=== PATIENT | female | born 1995 | race Caucasian/White ===

== ENCOUNTER 2016-09-05 22:38 | Emergency (ER) | payer OTHER ==
[~2016-09-05] VITALS: Ht 152.4 cm; Wt 81.6 kg
[~2016-09-05 22:38] MED LIST: IBUP-1060 PO
[2016-09-05 22:40] VITALS: BP 115/72
[2016-09-05] MEDS ORDERED: HYDR-2666 PO (23:38)
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
[2016-09-06] MEDS ORDERED: BACI3.5O8 OS
== END 2016-09-06 00:05 | disposition home or self-care (01) ==
LOC: ER 22:38
DX: T20.66XA Corrosion of second degree of forehead and cheek, initial encounter (principal); T65.891A Toxic effect of other specified substances, accidental (unintentional), initial encounter; Y93.H9 Activity, other involving exterior property and land maintenance, building and construction; Y99.8 Other external cause status; Y92.89 Other specified places as the place of occurrence of the external cause
CPT/HCPCS: 16000; 99284-25

== ENCOUNTER 2017-04-04 11:28 | Emergency (ER) | payer OTHER ==
[~2017-04-04] VITALS: Ht 152.4 cm; Wt 73.5 kg
[~2017-04-04 11:28] MED LIST changes: +BACI3.5O8 OS; +HYDR-2758 PO
[2017-04-04] MEDS ORDERED: IV NORMAL SALINE 1000ML BAG 1,000 ML IV SCH (11:54)
--- NOTE | 2017-04-04 11:58 | PHYS DOC ---
Past Medical History Past Medical History: No Pertinent History Past Surgical History: No Surgical History Alcohol Use: None Drug Use: Marijuana Adult General Chief Complaint Chief Complaint: ABDOMINAL PAIN HPI HPI Patient is a 22 year old female who presents with right lower quadrant pain. She states it started 3 days ago. It is a crampy/sharp pain that shoots across her suprapubic area but is mainly in her right lower quadrant. She denies any ears chills nausea vomiting or diarrhea. She denies any vaginal bleeding or discharge or dysuria. She states she's had bad menstrual cramps in the past and this feels somewhat like that but not nearly as bad. She has not taken anything for the pain as of yet. She denies any past medical history and denies any history of surgery. Review of Systems Review of Systems Constitutional: Denies fever or chills [] Eyes: Denies change in visual acuity, redness, or eye pain [] HENT: Denies nasal congestion or sore throat [] Respiratory: Denies cough or shortness of breath [] Cardiovascular: No additional information not addressed in HPI [] GI: Positive for abdominal pain. Denies nausea, vomiting, bloody stools or diarrhea [] : Denies dysuria or hematuria [] Musculoskeletal: Denies back pain or joint pain [] Integument: Denies rash or skin lesions [] Neurologic: Denies headache, focal weakness or sensory changes [] Endocrine: Denies polyuria or polydipsia [] Current Medications Current Medications Current Medications Medications (Trade) Dose Ordered Sig/[facility] Start Time Stop Time Status Last Admin Dose Admin Ceftriaxone Sodium 50 ml @ 100 mls/hr 1X ONCE 04/04/17 14:45 04/04/17 15:14 Info (Do NOT chart on this entry -- for MONITORING) 1 each PRN DAILY PRN 04/04/17 12:15 04/06/17 12:14 Iohexol (Omnipaque 300 Mg/ml) 75 ml 1X ONCE 04/04/17 12:15 04/04/17 12:16 DC 04/04/17 12:15 75 ML Morphine Sulfate 2 mg PRN Q15MIN PRN 04/04/17 12:00 04/05/17 11:59 Ondansetron HCl (Zofran) 4 mg 1X ONCE 04/04/17 12:00 04/04/17 12:01 DC Sodium Chloride 1,000 ml @ 1,000 mls/hr Q1H 04/04/17 11:54 04/04/17 12:53 DC 04/04/17 12:13 1,000 MLS/HR Allergies Allergies Allergies Coded Allergies Type Severity Reaction Last Updated Verified No Known Drug Allergies 02/22/14 No Physical Exam Physical Exam Constitutional: Well developed, well nourished, no acute distress, non-toxic appearance. [] HENT: Normocephalic, atraumatic, bilateral external ears normal, oropharynx moist, no oral exudates, nose normal. [] Eyes: PERRLA, EOMI, conjunctiva normal, no discharge. [] Neck: Normal range of motion, no tenderness, supple, no stridor. [] Cardiovascular:Heart rate regular rhythm, no murmur [] Lungs & Thorax: Bilateral breath sounds clear to auscultation [] Abdomen: Bowel sounds hyperactive, soft, mild tender to palpation without any rebound or guarding in the right lower quadrant, Psoas sign negative, no masses , no pulsatile masses. [] Skin: Warm, dry, no erythema, no rash. [] Back: No tenderness, no CVA tenderness. [] Extremities: No tenderness, no cyanosis, no clubbing, ROM intact, no edema. [] Neurologic: Alert and oriented X 3, normal motor function, normal sensory function, no focal deficits noted. [] Psychologic: Affect normal, judgement normal, mood normal. [] Current Patient Data Vital Signs Vital Signs Date Time Temp Pulse Resp B/P (MAP) Pulse Ox O2 Delivery O2 Flow Rate FiO2 04/04/17 14:30 74 20 105/56 (72) 99 04/04/17 11:39 98.3 Room Air 98.3 Lab Values Laboratory Tests Test 04/04/17 10:46 04/04/17 11:35 04/04/17 12:00 04/04/17 12:30 POC Urine HCG, Qualitative Hcg negative (Negative) Urine Collection Type Unknown Urine Color Yellow Urine Clarity Cloudy Urine pH 6.0 Urine Specific [place] 1.020 Urine Protein Negative mg/dL (NEG-TRACE) Urine Glucose (UA) Negative mg/dL (NEG) Urine Ketones (Stick) Negative mg/dL (NEG) Urine Blood Negative (NEG) Urine Nitrite Positive (NEG) Urine Bilirubin Negative (NEG) Urine Urobilinogen Dipstick 0.2 mg/dL (0.2 mg/dL) Urine Leukocyte Esterase Large (NEG) Urine RBC 0 /HPF (0-2) Urine WBC >40 /HPF (0-4) Urine Squamous Epithelial Cells Mod /LPF Urine Bacteria Many /HPF (0-FEW) White Blood Count 7.5 x10^3/uL (4.0-11.0) Red Blood Count 4.45 x10^6/uL (3.50-5.40) Hemoglobin 13.9 g/dL (12.0-15.5) Hematocrit 41.5 % (36.0-47.0) Mean Corpuscular Volume 93 fL (79-100) Mean Corpuscular Hemoglobin 31 pg (25-35) Mean Corpuscular Hemoglobin Concent 34 g/dL (31-37) Red Cell Distribution Width 13.1 % (11.5-14.5) Platelet Count 204 x10^3/uL (140-400) Neutrophils (%) (Auto) 74 % (31-73) H Lymphocytes (%) (Auto) 20 % (24-48) L Monocytes (%) (Auto) 5 % (0-9) Eosinophils (%) (Auto) 1 % (0-3) Basophils (%) (Auto) 0 % (0-3) Neutrophils # (Auto) 5.5 x10^3uL (1.8-7.7) Lymphocytes # (Auto) 1.5 x10^3/uL (1.0-4.8) Monocytes # (Auto) 0.4 x10^3/uL (0.0-1.1) Eosinophils # (Auto) 0.1 x10^3/uL (0.0-0.7) Basophils # (Auto) 0.0 x10^3/uL (0.0-0.2) Prothrombin Time 13.0 SEC (11.7-14.0) Prothrombin Time INR 1.0 (0.8-1.1) PTT 32 SEC (24-38) Sodium Level 143 mmol/L (136-145) Potassium Level 3.6 mmol/L (3.5-5.1) Chloride Level 107 mmol/L (98-107) Carbon Dioxide Level 27 mmol/L (21-32) Anion Gap 9 (6-14) Blood Urea Nitrogen 8 mg/dL (7-20) Creatinine 0.7 mg/dL (0.6-1.0) Estimated GFR (Cockcroft-Gault) 103.7 Glucose Level 78 mg/dL (70-99) Calcium Level 8.7 mg/dL (8.5-10.1) Total Bilirubin 0.5 mg/dL (0.2-1.0) Direct Bilirubin 0.1 mg/dL (0.0-0.2) Aspartate Amino Transferase (AST) 26 U/L (15-37) Alanine Aminotransferase (ALT) 38 U/L (14-59) Alkaline Phosphatase 90 U/L (46-116) Creatine Kinase 42 U/L (26-192) Total Protein 8.4 g/dL (6.4-8.2) H Albumin 3.9 g/dL (3.4-5.0) Lipase 141 U/L (73-393) Laboratory Tests 04/04/17 12:00 Laboratory Tests 04/04/17 12:30 EKG EKG [] Radiology/Procedures Radiology/Procedures [facility] [address] [place] [address] IMAGING REPORT Signed PATIENT: MARK MONTANO ACCOUNT: [id number] : 1995 LOCATION: ER AGE: 22 SEX: F EXAM STATUS: REG ER ORD. PHYSICIAN: LOUIS PATEL MD REASON: rlq pain/waiting patient in ct PROCEDURE: PELVIS COMPLETE Pelvic ultrasound, 04/04/2017: History: Right lower quadrant pain Transabdominal scans were obtained. The patient refused to allow transvaginal scanning could be performed. The uterus measures 9.7 x 4.3 x 5.6 cm. The central uterine echo complex is not thickened, measuring 6 mm in AP dimension. The ovaries are of normal size. There is a 1.5 cm cyst in the right ovary. There is blood flow in both ovaries. No adnexal mass is evident. A small amount of free fluid seen in the pelvis on the CT study was not demonstrated on these transabdominal scans. IMPRESSION: 1. Small right ovarian cyst. 2. The pelvic ultrasound is otherwise unremarkable. DICTATED and SIGNED BY: SAL BELTRAN MD DATE: 04/04/17 1442 CC: LOUIS PATEL MD; NO PCP ~ [facility] [address] [place] [address] IMAGING REPORT Signed PATIENT: MARK MONTANO ACCOUNT: [id number] : 1995 LOCATION: ER AGE: 22 SEX: F EXAM STATUS: REG ER ORD. PHYSICIAN: LOUIS PATEL MD REASON: rlq pain PROCEDURE: CT ABD PELV W/ IV CONTRST ONLY CT of the abdomen and pelvis with contrast, 04/04/2017: History: Right lower quadrant pain Multidetector CT imaging was performed following an IV bolus injection of iodinated contrast material. No oral contrast material was administered for this exam. The liver is unremarkable. No gallbladder abnormality is seen. The pancreas shows no abnormality. The spleen is of normal size. The kidneys are unremarkable. The uterus is within normal limits in size. There is a small amount of free fluid in the deep pelvis. There appears to be a 1.5 cm cyst in the right ovary. The left ovary is unremarkable. The bowel loops are not dilated. A portion of the appendix is visualized. It is not dilated, measuring approximately 6 mm in width. Its tip is not visible. The bowel loops are not dilated. No free air is evident in the abdomen or pelvis. IMPRESSION: 1. Small amount of free fluid in the pelvis. This May be on a physiologic basis or could be due to recent rupture of an ovarian cyst or PID. 2. Small right ovarian cyst. PQRS Compliance Statement: One or more of the following individualized dose reduction techniques were utilized for this examination: 1. Automated exposure control 2. Adjustment of the mA and/or kV according to patient size 3. Use of iterative reconstruction technique DICTATED and SIGNED BY: SAL BELTRAN MD DATE: 04/04/17 2852 CC: LOUIS PATEL MD; NO PCP ~ Impressions: Urinary tract infection Course & Med Decision Making Course & Med Decision Making Pertinent Labs and Imaging studies reviewed. (See chart for details) CT scan Jennifer ultrasound of pelvis did not show any acute abnormality's. Patient' s being discharged home after she received Rocephin and will be discharged with Cipro 5 mg twice daily for 3 days. Return precautions given. Patient's agreeable Plan B discharged in stable condition this time. Dragon Disclaimer Dragon Disclaimer This electronic medical record was generated, in whole or in part, using a voice recognition dictation system. Departure Departure Impression: Primary Impression: UTI (urinary tract infection) Disposition: HOME, SELF-CARE Condition: STABLE Referrals: NO PCP (PCP) Patient Instructions: Urinary Tract Infection Additional Instructions: You have a bladder infection and you'll need take biotics for the next 3 days. The CAT scan ultrasound of your abdomen did not show any acute abnormalities. If your pain gets worse, fevers, uncontrolled nausea vomiting or other concerns please return back to emergency department. You should follow-up with your primary care physician within the next 5 days. Scripts Ciprofloxacin Hcl (CIPRO) 500 Mg Tablet 500 MG PO BID for 3 Days, #6 TAB 0 Refills Prov: LOUIS PATEL MD 04/04/17 Problem Qualifiers Primary Impression: UTI (urinary tract infection) Urinary tract infection type: acute cystitis Hematuria presence: without hematuria Qualified Codes: N30.00 - Acute cystitis without hematuria LOUIS PATEL MD Apr 04, 2017 11:58
[2017-04-04] MEDS ORDERED: MORPHINE SULFATE 2 MG/ML DISP.SYRIN. IV/SQ PRN (12:00)
[2017-04-04] MEDS ORDERED: ONDANSETRON PF 4 MG/2 ML VIAL. IV ONE (12:00)
[2017-04-04 12:05] LABS: BASO % 0 % (0-3); EOS % 1 % (0-3); HEMATOCRIT 41.5 % (36.0-47.0); HEMOGLOBIN 13.9 g/dL (12.0-15.5); LYMPH # 1.5 x10^3/uL (1.0-4.8); LYMPH % 20 % (24-48); MEAN CORPUSCULAR HEMOGLOBIN 31 pg (25-35); MEAN CORPUSCULAR HGB CONC 34 g/dL (31-37); MEAN CORPUSCULAR VOLUME 93 fL (79-100); MONO % 5 % (0-9); NEUT % 74 % (31-73); PLATELET COUNT 204 x10^3/uL (140-400); RED BLOOD COUNT 4.45 x10^6/uL (3.50-5.40); RED CELL DISTRIBUTION WIDTH 13.1 % (11.5-14.5); WHITE BLOOD COUNT 7.5 x10^3/uL (4.0-11.0)
[2017-04-04] MEDS ORDERED: IOHEXOL 300 MG/ML 75 ML VIAL IV ONE (12:15)
[2017-04-04] MEDS ORDERED: CONTRAST GIVEN MC PRN (12:15)
[2017-04-04 12:24] LABS: BILIRUBIN,URINE NEGATIVE (NEG); GLUCOSE,URINE NEGATIVE (NEG); NITRITE,URINE POSITIVE (NEG); PROTEIN,URINE NEGATIVE (NEG-TRACE); UROBILINOGEN,URINE 0.2 mg/dL (0.2 mg/dL)
[2017-04-04 12:45] LABS: BACTERIA,URINE MANY /HPF (0-FEW); RBC,URINE 0 /HPF (0-2); SQUAMOUS EPITHELIAL CELL,UR MOD /LPF; WBC,URINE >40 /HPF (0-4)
[2017-04-04 12:54] LABS: CALCIUM 8.7 mg/dL (8.5-10.1); CREATININE 0.7 mg/dL (0.6-1.0); GFR 103.7; POTASSIUM 3.6 mmol/L (3.5-5.1)
[2017-04-04 13:01] LABS: ALBUMIN 3.9 g/dL (3.4-5.0); DIRECT BILIRUBIN 0.1 mg/dL (0.0-0.2); TOTAL BILIRUBIN 0.5 mg/dL (0.2-1.0); TOTAL PROTEIN 8.4 g/dL (6.4-8.2)
[2017-04-04 14:30] VITALS: BP 105/56
--- NOTE | 2017-04-04 14:44 | RAD ---
CT of the abdomen and pelvis with contrast, 04/04/2017: History: Right lower quadrant pain Multidetector CT imaging was performed following an IV bolus injection of iodinated contrast material. No oral contrast material was administered for this exam. The liver is unremarkable. No gallbladder abnormality is seen. The pancreas shows no abnormality. The spleen is of normal size. The kidneys are unremarkable. The uterus is within normal limits in size. There is a small amount of free fluid in the deep pelvis. There appears to be a 1.5 cm cyst in the right ovary. The left ovary is unremarkable. The bowel loops are not dilated. A portion of the appendix is visualized. It is not dilated, measuring approximately 6 mm in width. Its tip is not visible. The bowel loops are not dilated. No free air is evident in the abdomen or pelvis. IMPRESSION: 1. Small amount of free fluid in the pelvis. This May be on a physiologic basis or could be due to recent rupture of an ovarian cyst or PID. 2. Small right ovarian cyst. PQRS Compliance Statement: One or more of the following individualized dose reduction techniques were utilized for this examination: 1. Automated exposure control 2. Adjustment of the mA and/or kV according to patient size 3. Use of iterative reconstruction technique
--- NOTE | 2017-04-04 14:46 | RAD ---
Pelvic ultrasound, 04/04/2017: History: Right lower quadrant pain Transabdominal scans were obtained. The patient refused to allow transvaginal scanning could be performed. The uterus measures 9.7 x 4.3 x 5.6 cm. The central uterine echo complex is not thickened, measuring 6 mm in AP dimension. The ovaries are of normal size. There is a 1.5 cm cyst in the right ovary. There is blood flow in both ovaries. No adnexal mass is evident. A small amount of free fluid seen in the pelvis on the CT study was not demonstrated on these transabdominal scans. IMPRESSION: 1. Small right ovarian cyst. 2. The pelvic ultrasound is otherwise unremarkable.
[2017-04-04] MEDS ORDERED: CIPR500T94 PO (14:58)
== END 2017-04-04 16:22 | disposition home or self-care (01) ==
LOC: ER 11:28
DX: N30.00 Acute cystitis without hematuria (principal); F12.10 Cannabis abuse, uncomplicated
CPT/HCPCS: 36415; 74177; 76856; 80048; 80076; 81001; 81025; 82550; 83690; 85027; 85610; 85730; 87086; 96361; 96365; 99285; J0690; J7030; Q9967; 87186

== ENCOUNTER → 2017-12-09 | Outpatient (CLI) | payer OTHER ==
[2017-12-09 11:43] LABS: ADD MAN DIFF? NO
[2017-12-09 11:48] LABS: BASO % 0 % (0-3); EOS # 0.2 x10^3/uL (0.0-0.7); EOS % 2 % (0-3); HEMATOCRIT 40.1 % (36.0-47.0); HEMOGLOBIN 13.9 g/dL (12.0-15.5); LYMPH # 2.3 x10^3/uL (1.0-4.8); LYMPH % 26 % (24-48); MEAN CORPUSCULAR HEMOGLOBIN 32 pg (25-35); MEAN CORPUSCULAR HGB CONC 35 g/dL (31-37); MEAN CORPUSCULAR VOLUME 93 fL (79-100); MONO # 0.5 x10^3/uL (0.0-1.1); MONO % 6 % (0-9); NEUT # 5.9 x10^3uL (1.8-7.7); NEUT % 67 % (31-73); PLATELET COUNT 185 x10^3/uL (140-400); RED BLOOD COUNT 4.31 x10^6/uL (3.50-5.40); RED CELL DISTRIBUTION WIDTH 13.3 % (11.5-14.5); WHITE BLOOD COUNT 8.9 x10^3/uL (4.0-11.0)
[2017-12-09 17:15] LABS: HIV ANTIBODY Non Reactive (Non Reactive)
[2017-12-09 22:15] LABS: HEP B SURFACE AG Negative (Negative)
[2017-12-11 20:09] LABS: RUBELLA IGG ANTIBODY 5.84 index (Immune >0.99)
[2017-12-11 23:07] LABS: RPR Non Reactive (Non Reactive)
== END | disposition home or self-care (01) ==
LOC: LAB 11:32
DX: N91.2 Amenorrhea, unspecified (principal)
CPT/HCPCS: 36415; 85025; 86593; 86703; 86762; 86850; 86900; 86901; 87340

== ENCOUNTER → 2018-02-13 | Outpatient (CLI) | payer OTHER | END | disposition home or self-care (01) | LOC: KCIC US 09:42 | DX: O26.842 Uterine size-date discrepancy, second trimester (principal); Z3A.19 19 weeks gestation of pregnancy | CPT/HCPCS: 76805 ==

== ENCOUNTER 2018-05-28 02:40 | Observation (INO) | payer OTHER ==
[~2018-05-28 02:40] MED LIST changes: +CIPR500T94 PO
[2018-05-28] MEDS ORDERED: IV RINGERS,LACTATED 1000ML 1,000 ML IV SCH (03:00)
[2018-05-28 03:46] LABS: BILIRUBIN,URINE NEGATIVE (NEG); CLARITY,URINE CLEAR; COLOR,URINE YELLOW; NITRITE,URINE NEGATIVE (NEG); PH,URINE 5.5; PROTEIN,URINE NEGATIVE (NEG-TRACE); UROBILINOGEN,URINE 0.2 mg/dL (0.2 mg/dL)
[2018-05-28 03:52] LABS: BACTERIA,URINE MANY /HPF (0-FEW); RBC,URINE 0 /HPF (0-2); SQUAMOUS EPITHELIAL CELL,UR FEW /LPF; WBC,URINE 20-40 /HPF (0-4)
[2018-05-28] MEDS ORDERED: ACETAMINOPHEN 500 MG TABLET PO ONE (04:15)
[2018-05-28] MEDS: guaiFENesin ORAL 200 MG/10 ML LIQUID. PO PRN ×2 (04:27→08:42)
[2018-05-28 10:50] LABS: INFLUENZA A PATIENT NEGATIVE (NEGATIVE); INFLUENZA B PATIENT NEGATIVE (NEGATIVE)
== END 2018-05-28 10:40 | disposition home or self-care (01) ==
LOC: 3 SO LND 02:40
PROVIDERS: ADMIT Obstetrics & Gynecology; ATTEND Obstetrics & Gynecology
DX: O62.9 Abnormality of forces of labor, unspecified (principal); Z3A.35 35 weeks gestation of pregnancy; Z23 Encounter for immunization
CPT/HCPCS: 81001; 87086; 87804; G0378; G0379; J7120

== ENCOUNTER 2018-06-23 23:14 | Inpatient (IN) | payer OTHER ==
[~2018-06-23] VITALS: Ht 152.4 cm; Wt 90.7 kg
[2018-06-23] MEDS ORDERED: IV RINGERS,LACTATED 1000ML 1,000 ML IV PRN (23:30)
[2018-06-23 23:47] LABS: BILIRUBIN,URINE NEGATIVE (NEG); CLARITY,URINE CLOUDY; COLOR,URINE AMBER; NITRITE,URINE NEGATIVE (NEG); PROTEIN,URINE NEGATIVE (NEG-TRACE)
[2018-06-23 23:52] LABS: BACTERIA,URINE MODERATE /HPF (0-FEW); RBC,URINE 0 /HPF (0-2); SQUAMOUS EPITHELIAL CELL,UR MANY /LPF; WBC,URINE TNTC /HPF (0-4)
[2018-06-23 23:54] LABS: AMPHETAMINE/METHAMPHETAMINE NEG (NEG); BARBITURATES NEG (NEG); BENZODIAZEPINES NEG (NEG); CANNABINOIDS NEG (NEG); COCAINE NEG (NEG); METHADONE NEG (NEG); OPIATES NEG (NEG); PHENCYCLIDINE NEG (NEG)
[2018-06-24 03:44] VITALS: BP 118/70
[2018-06-24] MEDS ORDERED: TERBUTALINE 1 MG/ML VIAL. SQ PRN (03:45)
[2018-06-24] MEDS ORDERED: OXYTOCIN 30 UNIT/500 ML PREMIX 500 ML IV PRN ×2 (03:45→14:30)
[2018-06-24] MEDS ORDERED: ONDANSETRON PF 4 MG/2 ML VIAL. IV PRN ×2 (03:45→06:00)
[2018-06-24] MEDS ORDERED: IBUPROFEN 400 MG TABLET. PO PRN (03:45)
[2018-06-24] MEDS ORDERED: 0.9 % SODIUM CHLORIDE 10 ML DISP.SYRIN. IV PRN ×2 (03:45→14:30)
[2018-06-24] MEDS ORDERED: LIDOCAINE 1% PF 30 ML VIAL. INJ PRN (03:45)
[2018-06-24] MEDS ORDERED: fentaNYL PF VIAL 100 MCG/2 ML VIAL IV PRN (03:45)
[2018-06-24] MEDS ORDERED: NALBUPHINE 10 MG/ML AMPUL. IV PRN ×2 (03:45→06:00)
[2018-06-24] MEDS ORDERED: PENICILLIN G K 5,000,000 UNIT in IV DEXTROSE 5% 100ML 100 ML IV ONE (04:00)
[2018-06-24] MEDS ORDERED: MAG HYDROX/ALUMINUM HYD/SIMETH 30 ML ORAL.SUSP ONE (04:07)
[2018-06-24] MEDS: IV RINGERS,LACTATED 1000ML 1,000 ML IV SCH ×4 (04:09→10:52)
[2018-06-24] MEDS ORDERED: MAG HYDROX/ALUMINUM HYD/SIMETH 30 ML ORAL.SUSP PO PRN ×2 (04:15→14:30)
[2018-06-24 05:09] LABS: BASO # 0.1 x10^3/uL (0.0-0.2); BASO % 1 % (0-3); EOS # 0.1 x10^3/uL (0.0-0.7); EOS % 1 % (0-3); HEMATOCRIT 33.9 % (36.0-47.0); LYMPH # 2.5 x10^3/uL (1.0-4.8); LYMPH % 24 % (24-48); MEAN CORPUSCULAR HEMOGLOBIN 27 pg (25-35); MEAN CORPUSCULAR HGB CONC 32 g/dL (31-37); MEAN CORPUSCULAR VOLUME 82 fL (79-100); MONO # 0.6 x10^3/uL (0.0-1.1); MONO % 6 % (0-9); NEUT # 7.1 x10^3uL (1.8-7.7); NEUT % 68 % (31-73); PLATELET COUNT 171 x10^3/uL (140-400); RED BLOOD COUNT 4.12 x10^6/uL (3.50-5.40); RED CELL DISTRIBUTION WIDTH 15.6 % (11.5-14.5); WHITE BLOOD COUNT 10.3 x10^3/uL (4.0-11.0)
[2018-06-24] MEDS ORDERED: IV RINGERS,LACTATED 1000ML 1,000 ML IV SCH (05:52)
[2018-06-24] MEDS ORDERED: diphenhydrAMINE 50 MG/ML VIAL IV PRN (06:00)
[2018-06-24] MEDS ORDERED: ePHEDrine PF IN SALINE 50 MG/5 ML DISP.SYRIN IV PRN (06:00)
[2018-06-24] MEDS ORDERED: fentaNYL PF VIAL 100 MCG/2 ML VIAL EPI PRN (06:00)
[2018-06-24] MEDS ORDERED: NALOXONE 0.4 MG/ML VIAL. IV PRN (06:00)
[2018-06-24] MEDS ORDERED: PROCHLORPERAZINE 10 MG/2 ML VIAL. IV PRN (06:00)
[2018-06-24] MEDS ORDERED: ROPIVacaine 0.2% IN 0.9%NACL PF 40 MG/20 ML DISP.SYRIN. EPID PRN (06:00)
[2018-06-24] MEDS ORDERED: BUPIVACAINE MPF 0.25% 30 ML VIAL. EPID PRN (06:00)
[2018-06-24] MEDS ORDERED: PHENYLEPHRINE in 0.9% NACL PF 1 MG/10 ML SYRINGE. IV PRN (06:00)
[2018-06-24] MEDS ORDERED: IV RINGERS,LACTATED 500ML 500 ML IV PRN (06:00)
[2018-06-24] MEDS: L&D EPIDURAL SYRINGE 50 ML EPID PRN ×2 (06:43→11:00)
[2018-06-24] MEDS ORDERED: PENICILLIN G K 2,500,000 UNIT in IV DEXTROSE 5% 50 ML IV SCH (08:00)
--- NOTE | 2018-06-24 11:08 | PDOC1 ---
OB - History Hx of Present Care: Good Care Ultrasounds: Normal mid trimester US Obstetrical Complications: None Medical Complications: None Past Family/Social History * Past Medical, Surgical, Family and Obstetric Histories reviewed from chart. Blood Type: A+ Rubella: Immune RPR/VDRL: Negative GBS Status: Negative HBsAG: Negative OB - Chief Complaint & HPI Date of Admission: Date of Admission: Jun 23, 2018 at 23:14 Chief Complaint/History : 3 Para: 2 EGA: 39 Reason for admission: active labor Admission Nurse Assessment Rev: Yes OB - Admission Exam Physical Exam Vitals: VS - Last 72 Hours, by Label Date Time Temp Pulse Resp B/P (MAP) Pulse Ox O2 Delivery O2 Flow Rate FiO2 06/24/18 11:00 18 99 Room Air 06/24/18 06:43 18 99 Room Air 06/24/18 03:44 97.7 86 20 118/70 (86) 99 Room Air 97.7 HEENT: Normal Heart: Regular Rate Lungs: Clear Abdomen: Gravid, Non tender, Soft Extremities: Edema Reflexes: Normal Cervical Dilatation: 3cm Effacement: 75% Station: -3 Membranes: Intact Accelerations: Accelerations Present Decelerations: No decelerations Short Term Variability: Present Contractions on Admission: < 5 Minutes Apart Intensity: Moderate Text A: 39 wks IUP Active labor P; Admit for labor management. JUDY ARRINGTON Jr, MD Jun 24, 2018 11:07
--- NOTE | 2018-06-24 14:18 | PDOC ---
VAGINAL DELIVERY DATE DATE: 06/24/18 TIME: 14:17 : 3 Para: 3 EGA: 39 VAGINAL DELIVERY: VTX VACCUM ASSISTED: No PLACENTA: Spontaneous 8/9 SEX: Male WEIGHT Weight [3630 gm ] Nuchal Cord: Yes, Times 1 Amniotic Fluid: Clear PAIN: Epidural EPISIOTOMY: No EXTENSION: Yes (2nd degree midline laceration) REPAIRED WITH 2-0 vicryl EBL 300 ml COMPLICATIONS none CONDITION pt. stable Signs of Intrauterine Infectio: None Shoulder Dystocia: No JUDY ARRINGTON Jr, MD Jun 24, 2018 14:18
[2018-06-24] MEDS ORDERED: ACETAMINOPHEN 325 MG TABLET. PO PRN (14:30)
[2018-06-24] MEDS ORDERED: DOCUSATE SODIUM 100 MG CAPSULE. PO PRN (14:30)
[2018-06-24] MEDS ORDERED: MAGNESIUM HYDROXIDE 2,400 MG/30 ML ORAL.SUSP. PO PRN (14:30)
[2018-06-24] MEDS ORDERED: MMR per PROTOCOL. MC PRN (14:30)
[2018-06-24] MEDS ORDERED: BENZOCAINE 20% TOPICAL AEROSOL SPRAY 57GM CAN. TP PRN (14:30)
[2018-06-24] MEDS ORDERED: SIMETHICONE 80 MG TAB.CHEW PO PRN (14:30)
[2018-06-24] MEDS ORDERED: HYDROCORTISONE 1% TOPICAL OINTMENT 30GM TUBE. TP PRN (14:30)
[2018-06-24] MEDS ORDERED: diphenhydrAMINE HCL 25 MG CAPSULE PO PRN (14:30)
[2018-06-24] MEDS ORDERED: PHENYLEPH/MINERAL OIL/PETROLAT RECTAL OINTMENT 28GM TUBE. RC PRN (14:30)
[2018-06-24] MEDS ORDERED: ZOLPIDEM 5 MG TABLET. PO PRN (14:30)
[2018-06-24 20:00] VITALS: BP 106/62
[2018-06-24 23:19] VITALS: BP 112/64
[2018-06-25] MEDS: IBUPROFEN 400 MG TABLET. PO PRN ×2 (02:31→15:42)
[2018-06-25 04:14] LABS: BASO % 0 % (0-3); EOS % 0 % (0-3); HEMATOCRIT 29.1 % (36.0-47.0); HEMOGLOBIN 9.4 g/dL (12.0-15.5); LYMPH # 1.6 x10^3/uL (1.0-4.8); LYMPH % 13 % (24-48); MEAN CORPUSCULAR HEMOGLOBIN 26 pg (25-35); MEAN CORPUSCULAR HGB CONC 32 g/dL (31-37); MEAN CORPUSCULAR VOLUME 82 fL (79-100); MONO # 0.9 x10^3/uL (0.0-1.1); MONO % 7 % (0-9); NEUT # 10.1 x10^3uL (1.8-7.7); NEUT % 80 % (31-73); PLATELET COUNT 135 x10^3/uL (140-400); RED BLOOD COUNT 3.56 x10^6/uL (3.50-5.40); RED CELL DISTRIBUTION WIDTH 16.1 % (11.5-14.5); WHITE BLOOD COUNT 12.6 x10^3/uL (4.0-11.0)
[2018-06-25 06:23] VITALS: BP 107/65
[2018-06-25] MEDS: FERROUS SULFATE 325 MG TABLET. PO SCH ×3 (07:52→18:31)
[2018-06-25] MEDS: oxyCODONE/APAP 5/325 1 TAB TABLET PO PRN ×2 (09:03→15:42)
[2018-06-25 10:57] VITALS: BP 103/54
--- NOTE | 2018-06-25 11:14 | PDOC ---
OB Progress Note Date of Service 06/25/18 Time of Evaluation 1115 Notes Pt. feeling well. No complaints. Lab Laboratory Tests Test 06/23/18 23:20 06/24/18 04:00 06/25/18 03:30 Urine Collection Type Unknown Urine Color Nory Urine Clarity Cloudy Urine pH 6.0 Urine Specific [place] 1.025 Urine Protein Negative mg/dL (NEG-TRACE) Urine Glucose (UA) Negative mg/dL (NEG) Urine Ketones (Stick) Trace mg/dL (NEG) Urine Blood Negative (NEG) Urine Nitrite Negative (NEG) Urine Bilirubin Negative (NEG) Urine Urobilinogen Dipstick 1.0 mg/dL (0.2 mg/dL) Urine Leukocyte Esterase Large (NEG) Urine RBC 0 /HPF (0-2) Urine WBC Tntc /HPF (0-4) Urine Squamous Epithelial Cells Many /LPF Urine Bacteria Moderate /HPF (0-FEW) Urine Mucus Marked /LPF Urine Opiates Screen Neg (NEG) Urine Methadone Screen Neg (NEG) Urine Barbiturates Neg (NEG) Urine Phencyclidine Screen Neg (NEG) Urine Amphetamine/Methamphetamine Neg (NEG) Urine Benzodiazepines Screen Neg (NEG) Urine Cocaine Screen Neg (NEG) Urine Cannabinoids Screen Neg (NEG) Urine Ethyl Alcohol Neg (NEG) White Blood Count 10.3 x10^3/uL (4.0-11.0) 12.6 x10^3/uL (4.0-11.0) Red Blood Count 4.12 x10^6/uL (3.50-5.40) 3.56 x10^6/uL (3.50-5.40) Hemoglobin 11.0 g/dL (12.0-15.5) 9.4 g/dL (12.0-15.5) Hematocrit 33.9 % (36.0-47.0) 29.1 % (36.0-47.0) Mean Corpuscular Volume 82 fL (79-100) 82 fL (79-100) Mean Corpuscular Hemoglobin 27 pg (25-35) 26 pg (25-35) Mean Corpuscular Hemoglobin Concent 32 g/dL (31-37) 32 g/dL (31-37) Red Cell Distribution Width 15.6 % (11.5-14.5) 16.1 % (11.5-14.5) Platelet Count 171 x10^3/uL (140-400) 135 x10^3/uL (140-400) Neutrophils (%) (Auto) 68 % (31-73) 80 % (31-73) Lymphocytes (%) (Auto) 24 % (24-48) 13 % (24-48) Monocytes (%) (Auto) 6 % (0-9) 7 % (0-9) Eosinophils (%) (Auto) 1 % (0-3) 0 % (0-3) Basophils (%) (Auto) 1 % (0-3) 0 % (0-3) Neutrophils # (Auto) 7.1 x10^3uL (1.8-7.7) 10.1 x10^3uL (1.8-7.7) Lymphocytes # (Auto) 2.5 x10^3/uL (1.0-4.8) 1.6 x10^3/uL (1.0-4.8) Monocytes # (Auto) 0.6 x10^3/uL (0.0-1.1) 0.9 x10^3/uL (0.0-1.1) Eosinophils # (Auto) 0.1 x10^3/uL (0.0-0.7) 0.0 x10^3/uL (0.0-0.7) Basophils # (Auto) 0.1 x10^3/uL (0.0-0.2) 0.0 x10^3/uL (0.0-0.2) Treponema pallidum Antibody Nonreactive (Nonreactive) Laboratory Tests Test 06/25/18 03:30 White Blood Count 12.6 x10^3/uL (4.0-11.0) Red Blood Count 3.56 x10^6/uL (3.50-5.40) Hemoglobin 9.4 g/dL (12.0-15.5) Hematocrit 29.1 % (36.0-47.0) Mean Corpuscular Volume 82 fL (79-100) Mean Corpuscular Hemoglobin 26 pg (25-35) Mean Corpuscular Hemoglobin Concent 32 g/dL (31-37) Red Cell Distribution Width 16.1 % (11.5-14.5) Platelet Count 135 x10^3/uL (140-400) Neutrophils (%) (Auto) 80 % (31-73) Lymphocytes (%) (Auto) 13 % (24-48) Monocytes (%) (Auto) 7 % (0-9) Eosinophils (%) (Auto) 0 % (0-3) Basophils (%) (Auto) 0 % (0-3) Neutrophils # (Auto) 10.1 x10^3uL (1.8-7.7) Lymphocytes # (Auto) 1.6 x10^3/uL (1.0-4.8) Monocytes # (Auto) 0.9 x10^3/uL (0.0-1.1) Eosinophils # (Auto) 0.0 x10^3/uL (0.0-0.7) Basophils # (Auto) 0.0 x10^3/uL (0.0-0.2) Medications Current Medications Ringer's Solution 1,000 ml @ 125 mls/hr Q8H PRN IV hydration; Start 06/23/18 at 23:30; Stop 06/24/18 at 20:23; Status DC Sodium Chloride (Normal Saline Flush) 3 ml QSHIFT PRN IV AFTER MEDS AND BLOOD DRAWS; Start 06/24/18 at 03:45 Ringer's Solution 1,000 ml @ 125 mls/hr Q8H IV Last administered on at 10:52; Start 06/24/18 at 03:37 Nalbuphine HCl (Nubain) 10 mg PRN Q1HR PRN IV Severe labor pain; Start at 03:45 Fentanyl Citrate (Fentanyl 2ml Vial) 100 mcg PRN Q30MIN PRN IV Severe pain; Start 06/24/18 at 03:45 Ondansetron HCl (Zofran) 8 mg PRN Q6HRS PRN IV NAUSEA/VOM IF 4MG INEFFECTIVE Last administered on 06/24/18at 04:39; Start 06/24/18 at 03:45; Stop 06/24/18 at 20:24; Status DC Terbutaline Sulfate (Brethine) 0.25 mg 1X PRN PRN SQ SEE COMMENTS; Start 06/24 at 03:45; Stop 06/25/18 at 03:44; Status DC Lidocaine HCl (Xylocaine 1% Pf 30ml Vial) 30 ml 1X PRN PRN INJ SEE COMMENTS Last administered on 06/24/18at 14:22; Start 06/24/18 at 03:45; Stop 06/26/18 at 03:44 Oxytocin/Sodium Chloride 500 ml @ 0 mls/hr CONT PRN PRN IV Post delivery bleeding Last administered on 06/24/18at 10:51; Start 06/24/18 at 03:45 Ibuprofen (Motrin) 800 mg PRN Q6HRS PRN PO PAIN; Start 06/24/18 at 03:45; Stop 06/24/18 at 20:23; Status DC Penicillin G Potassium 2404085 unit/Dextrose 100 ml @ 100 mls/hr 1X ONCE IV Last administered on 06/24/18at 04:08; Start 06/24/18 at 04:00; Stop 06/24/18 at 04:59; Status DC Penicillin G Potassium [id number] unit/Dextrose 50 ml @ 100 mls/hr Q4H IV Last administered on 06/24/18at 07:41; Start 06/24/18 at 08:00; Stop 06/25/18 at 04 :56; Status DC Al Hydroxide/Mg Hydroxide (Mylanta Plus Xs) 30 ml PRN Q2HR PRN PO HEARTBURN / GAS Last administered on 06/24/18at 04:09; Start 06/24/18 at 04:15; Stop 06/24 at 20:23; Status DC Al Hydroxide/Mg Hydroxide (Mylanta Plus Xs) 30 ml STK-MED ONCE .ROUTE ; Start 06/24/18 at 04:07; Stop 06/24/18 at 04:09; Status DC Ringer's Solution 1,000 ml @ 1,000 mls/hr Q1H IV ; Start 06/24/18 at 05:52; Stop 06/24/18 at 06:51; Status DC Ringer's Solution 500 ml @ 500 mls/hr 1X PRN PRN IV HYPOTENSION; Start at 06:00; Stop 06/25/18 at 05:59; Status DC Ephedrine Sulfate (ePHEDrine PF IN SALINE SYRINGE) 10 mg PRN Q2MIN PRN IV IF SBP<90; Start 06/24/18 at 06:00 Phenylephrine HCl (PHENYLEPHRINE in 0.9% NACL PF) 0.05 mg PRN Q2MIN PRN IV SBP less than 90; Start 06/24/18 at 06:00 Naloxone HCl (Narcan) 0.04 mg PRN Q1MIN PRN IV SEE COMMENTS; Start 06/24/18 at 06:00 Fentanyl Citrate (Fentanyl 2ml Vial) 100 mcg PRN 1X PRN EPI FOR ANESTHESIA; Start 06/24/18 at 06:00; Stop 06/25/18 at 05:59; Status DC Bupivacaine HCl (Sensorcaine Mpf 0.25%) 10 ml PRN 1X PRN EPID FOR ANESTHESIA Last administered on 06/24/18at 06:41; Start 06/24/18 at 06:00; Stop 06/25/18 at 05:59; Status DC Ropivacaine/ Fentanyl/NS 50 ml @ 14 mls/hr CONT PRN EPID PAIN Last administered on 06/24/18at 11:00; Start 06/24/18 at 06:00 Ondansetron HCl (Zofran) 4 mg PRN Q6HRS PRN IV NAUSEA/VOMITING 1ST CHOICE; Start 06/24/18 at 06:00 Prochlorperazine Edisylate (Compazine) 5 mg PRN Q6HRS PRN IV NAUSEA/VOMITING 2ND CHOICE; Start 06/24/18 at 06:00 Diphenhydramine HCl (Benadryl) 12.5 mg PRN Q2HR PRN IV ITCHING 2ND CHOICE; Start 06/24/18 at 06:00 Nalbuphine HCl (Nubain) 2.5 mg PRN Q2HR PRN IV ITCHING 1ST CHOICE; Start 06/24 at 06:00 Ropivacaine/ Sodium Chloride (ROPIVacaine 0.2% - 0.9%NACL PF) 40 mg 1X PRN PRN EPID PER ANESTHESIA; Start 06/24/18 at 06:00; Stop 06/25/18 at 05:53; Status DC Sodium Chloride (Normal Saline Flush) 10 ml QSHIFT PRN IV AFTER MEDS AND BLOOD DRAWS; Start 06/24/18 at 14:30 Oxytocin/Sodium Chloride 500 ml @ 62.5 mls/hr CONT PRN IV SEE I/O RECORD; Start 06/24/18 at 14:30; Stop 06/24/18 at 22:29; Status DC Acetaminophen (Tylenol) 650 mg PRN Q6HRS PRN PO MILD PAIN / TEMP Last administered on 06/25/18at 07:52; Start 06/24/18 at 14:30 Ibuprofen (Motrin) 800 mg PRN Q8HRS PRN PO INFLAMMATION/PAIN PREVENTION Last administered on 06/25/18at 02:31; Start 06/24/18 at 14:30 Docusate Sodium (Colace) 100 mg PRN BID PRN PO CONSTIPATION 1st choice; Start 06/24/18 at 14:30 Magnesium Hydroxide (Milk Of Magnesia) 2,400 mg PRN DAILY PRN PO CONSTIPATION 2ND CHOICE; Start 06/24/18 at 14:30 Al Hydroxide/Mg Hydroxide (Mylanta Plus Xs) 30 ml PRN Q4HRS PRN PO HEARTBURN / GAS; Start 06/24/18 at 14:30 Simethicone (Gas-X) 80 mg PRN AFTMEALHC PRN PO GAS / BLOATING; Start 06/24/18 at 14:30 Diphenhydramine HCl (Benadryl) 25 mg PRN Q6HRS PRN PO ITCHING; Start 06/24/18 at 14:30 Benzocaine (Americaine) 1 spray PRN QID PRN TP TOPICAL PAIN Last administered on 06/24/18at 16:58; Start 06/24/18 at 14:30 Phenyleph/Shark Oil/Min Oil/Petrol (Preparation H) 1 elizabeth PRN QID PRN RC RECTAL PAIN; Start 06/24/18 at 14:30 Hydrocortisone (Cortaid) 1 elizabeth PRN QID PRN TP PERINEAL PAIN; Start 06/24/18 at 14:30 Ferrous Sulfate (Feosol) 325 mg BIDWMEALS PO Last administered on 06/25/18at 07 :52; Start 06/24/18 at 17:00 Zolpidem Tartrate (Ambien) 5 mg PRN QHS PRN PO INSOMNIA, MAY REPEAT X1; Start 06/24/18 at 14:30 Info (Do NOT chart on this placeholder) 1 ea 1X PRN PRN MC SEE COMMENTS; Start 06/24/18 at 14:30 Info (Do NOT chart on this placeholder) 1 ea 1X PRN PRN MC SEE COMMENTS; Start 06/24/18 at 14:30 Oxycodone/ Acetaminophen (Percocet 5/325) 2 tab PRN Q4HRS PRN PO MODERATE PAIN , SEVERE PAIN Last administered on 06/25/18at 09:03; Start 06/24/18 at 14:30 Active Scripts Active Cipro (Ciprofloxacin Hcl) 500 Mg Tablet 500 Mg PO BID 3 Days Bacitracin 3.5 Gm Oint...g. 1 Elizabeth OS TID Hydrocodone-Apap 5-325 (Hydrocodone Bit/Acetaminophen) 1 Each Tablet 1 Tab PO PRN Q6HRS PRN Be careful as this medication may cause you to be drowsy or tired. Do not drive on this medication. Reported Ibuprofen 800 Mg Tablet 800 Mg PO Q8HRS PRN Exam Abd: soft, non tender, fundus firm Assessment PPD#1 s/p Plan of Care: Continue current Tx, Mgmt JUDY ARRINGTON Jr, MD Jun 25, 2018 11:14
[2018-06-25] MEDS: IV RINGERS,LACTATED 1000ML 1,000 ML IV SCH (11:37)
[2018-06-25 17:50] VITALS: BP 108/62
[2018-06-25 22:01] VITALS: BP 108/62
[2018-06-26] MEDS: IBUPROFEN 400 MG TABLET. PO PRN ×2 (03:50→15:11)
[2018-06-26 05:15] VITALS: BP 95/58
[2018-06-26] MEDS: FERROUS SULFATE 325 MG TABLET. PO SCH (09:37)
[2018-06-26] MEDS: oxyCODONE/APAP 5/325 1 TAB TABLET PO PRN (15:12)
[2018-06-26 17:15] VITALS: BP 115/70
--- NOTE | 2018-06-26 17:24 | PDOC3 ---
OB DISCHARGE SUMMARY DATE OF ADMISSION: 06/24/18 DATE OF DISCHARGE: 06/26/18 REASON FOR ADMISSION: Onset of labor INTRAPARTUM PROCEDURES: Spontanous Vag Deliv DISCHARGE DIAGNOSIS: Term Delivered DISCHARGE INFORMATION: Activity (ad lani), Diet (regular), Instructions (pelvic rest x 6 wks) HOSPITAL COURSE Term gestation delivered vaginall without complications JUDY ARRINGTON Jr, MD Jun 26, 2018 17:24
--- NOTE | 2018-06-26 17:27 | DISCH ---
DISCHARGE INSTRUCTIONS Condition on Discharge Condition on Discharge: Stable Activity After Discharge Activity Instructions for Disc: Activity as tolerated, Other, see below Lifting Instructions after Dis: Do not lift >10 pounds Exercise Instruction after Dis: Walk 30 min, 5 x per week Driving Instructions after Dis: Do not drive today, Other, see below Weight Bearing Status after Di: No restrictions Diet after Discharge Diet after Discharge: Regular Contacting the DRSharonda after DC Call your doctor for: Concerns you may have Follow-Up Follow up with: Dr. Guillen in 6 wks. Treatment/Equipment after DC Adaptive Equipment Issued: None JUDY GUILLEN Jr, MD Jun 26, 2018 17:27
[2018-06-26] MEDS ORDERED: IBUP-1060 PO (17:29)
== END 2018-06-26 17:50 | disposition home or self-care (01) | DRG 807 ==
LOC: 3 SO LND 23:14 → OBSVTOIN 23:14 → 3 NORTH 06-24 20:11
PROVIDERS: ADMIT Obstetrics & Gynecology; ATTEND Obstetrics & Gynecology
PROC: 10E0XZZ Delivery of Products of Conception, External Approach (ICD-10-PCS; principal; 2018-06-24)
PROC: 0KQM0ZZ Repair Perineum Muscle, Open Approach (ICD-10-PCS; 2018-06-24)
PROC: 10907ZC Drainage of Amniotic Fluid, Therapeutic from Products of Conception, Via Natural or Artificial Opening (ICD-10-PCS; 2018-06-24)
PROC: 00HU33Z Insertion of Infusion Device into Spinal Canal, Percutaneous Approach (ICD-10-PCS; 2018-06-24)
PROC: 3E0R3BZ Introduction of Anesthetic Agent into Spinal Canal, Percutaneous Approach (ICD-10-PCS; 2018-06-24)
DX: O69.81X0 Labor and delivery complicated by cord around neck, without compression, not applicable or unspecified (principal); Z37.0 Single live birth; Z3A.39 39 weeks gestation of pregnancy; O70.1 Second degree perineal laceration during delivery
CPT/HCPCS: 36415; 80307; 81001; 85025; 86592; 86850; 86900; 86901; 87086; G0378; J2405; J2540; J2590; J3490; J7120; G0479

== ENCOUNTER 2018-11-16 19:06 | Emergency (ER) | payer OTHER ==
[~2018-11-16] VITALS: Ht 152.4 cm; Wt 83.9 kg
[~2018-11-16 19:06] MED LIST changes: -HYDR-2758 PO; +HYDR-2761 PO
[2018-11-16 19:30] VITALS: BP 129/77
[2018-11-16] MEDS ORDERED: AMOX500T PO (20:00)
[2018-11-16] MEDS ORDERED: DICL50TA2 PO (20:00)
--- NOTE | 2018-11-16 20:00 | PHYS DOC ---
Past Medical History Past Medical History: No Pertinent History Past Surgical History: No Surgical History Alcohol Use: Rarely Drug Use: Marijuana Adult General Chief Complaint Chief Complaint: DENTAL PROBLEM HPI HPI Patient is a 23 year old [female with no significant medical history who presents to the ED today complaining of 8 out of 10 right lower gum dental pain radiating to the right ear that began this afternoon. Patient states she has a bad right lower wisdom tooth that needs to be removed. She states she has an appointment with her dentist next week. Denies any fever or trismus. Review of Systems Review of Systems Constitutional: Denies fever or chills [] Eyes: Denies change in visual acuity, redness, or eye pain [] HENT: Reports right lower gum dental pain. Musculoskeletal: Denies back pain or joint pain [] Integument: Denies rash or skin lesions [] Neurologic: Denies headache, focal weakness or sensory changes [] All other systems were reviewed and found to be within normal limits, except as documented in this note. Allergies Allergies Allergies Coded Allergies Type Severity Reaction Last Updated Verified No Known Drug Allergies 02/22/14 No Physical Exam Physical Exam Constitutional: Well developed, well nourished, no acute distress, non-toxic appearance. [] HENT: Normocephalic, atraumatic, bilateral external ears normal, oropharynx moist, no oral exudates, nose normal. [] Right wisdom tooth is broken and decayed. There is gingivitis throughout her gums. There is no obvious abscess. Skin: Warm, dry, no erythema, no rash. [] Back: No tenderness, no CVA tenderness. [] Extremities: No tenderness, no cyanosis, no clubbing, ROM intact, no edema. [] Neurologic: Alert and oriented X 3, normal motor function, normal sensory function, no focal deficits noted. [] Psychologic: Affect normal, judgement normal, mood normal. [] Current Patient Data Vital Signs Vital Signs Date Time Temp Pulse Resp B/P (MAP) Pulse Ox O2 Delivery O2 Flow Rate FiO2 11/16/18 19:30 98.6 58 18 129/77 (94) 100 Room Air 98.6 EKG EKG [] Radiology/Procedures Radiology/Procedures [] Course & Med Decision Making Course & Med Decision Making Pertinent Labs and Imaging studies reviewed. (See chart for details) Patient has infected dental caries, gingivitis. Will be discharged with amoxicillin and Peridex for 10 days. Diclofenac for pain. Follow-up with dentist next week as scheduled. Dragon Disclaimer Dragon Disclaimer This electronic medical record was generated, in whole or in part, using a voice recognition dictation system. Departure Departure Impression: Primary Impression: Dentalgia Additional Impressions: Gingivitis Infected dental caries Disposition: ADMITTED INPATIENT Condition: STABLE Referrals: NO PCP (PCP) Follow-up with your dentist next week Patient Instructions: Dental Caries Additional Instructions: You were seen for dental infection. We put you on antibiotics, take them as prescribed. Use the mouthwash prescribed as ordered. Follow-up with your dentist in 1-2 weeks. Scripts Diclofenac Potassium (DICLOFENAC POTASSIUM) 50 Mg Tablet 1 TAB PO BID, #20 TAB 0 Refills Prov: EDVIN PERALES APRN 11/16/18 Amoxicillin (AMOXICILLIN) 500 Mg Tablet 1 TAB PO BID, #20 TAB Prov: EDVIN PERALES APRN 11/16/18 Problem Qualifiers EDVIN PERALES APRN Nov 16, 2018 20:00
== END 2018-11-16 20:24 | disposition home or self-care (01) ==
LOC: ER 19:06
DX: K02.9 Dental caries, unspecified (principal); K05.10 Chronic gingivitis, plaque induced
CPT/HCPCS: 99283

== ENCOUNTER 2019-09-11 02:29 | Emergency (ER) | payer SELFPAY ==
[~2019-09-11] VITALS: Ht 152.4 cm; Wt 84.8 kg
[~2019-09-11 02:29] MED LIST changes: +AMOX500T PO; +DICL50TA2 PO
[2019-09-11 02:45] VITALS: BP 130/78
--- NOTE | 2019-09-11 03:00 | PHYS DOC ---
Past Medical History Past Medical History: No Pertinent History Past Surgical History: No Surgical History Alcohol Use: Rarely Drug Use: Marijuana Adult General Chief Complaint Chief Complaint: FLU SYMPTOM HPI HPI 24-year-old female presents to the emergency Department complaints of cough, yellow sputum production, dizziness, nausea, decreased appetite. She as well describes body aches. The symptoms have been ongoing for approximately 8 days. Nothing makes her symptoms worse, nothing makes her symptoms better on exam. She does have some sore throat on exam. All other ROS negative unless documented in HPI Review of Systems Review of Systems See Above Allergies Allergies Allergies Coded Allergies Type Severity Reaction Last Updated Verified No Known Drug Allergies 02/22/14 No Physical Exam Physical Exam See Above Constitutional: Well developed, well nourished, no acute distress, non-toxic appearance. [] HENT: Normocephalic, atraumatic, bilateral external ears normal, oropharynx moist, + patchy exudate, nose normal. [] Eyes: PERRLA, EOMI, conjunctiva normal, no discharge. [] Neck: Normal range of motion, mild TTP with submandibular lymphadenopathy Cardiovascular:Heart rate regular rhythm, no murmur [] Lungs & Thorax: crackles appreciated to right Abdomen: Bowel sounds normal, no pulsatile masses. [] Skin: Warm, dry, no erythema, no rash. [] Back: No tenderness, no CVA tenderness. [] Neurologic: Alert and oriented X 3, no focal deficits noted. [] Psychologic: Affect normal, judgement normal, mood normal. [] Current Patient Data Vital Signs Vital Signs Date Time Temp Pulse Resp B/P (MAP) Pulse Ox O2 Delivery O2 Flow Rate FiO2 09/11/19 02:45 98.1 105 18 130/78 (95) 97 Room Air 98.1 EKG EKG [] Radiology/Procedures Radiology/Procedures Chest xray wet read with evidence of right lower lobe consolidation. [] Course & Med Decision Making Course & Med Decision Making Pertinent Labs and Imaging studies reviewed. (See chart for details) []24-year-old female presents to the emergency Department complaints of cough, yellow sputum production, dizziness, nausea, decreased appetite. She as well describes body aches. The symptoms have been ongoing for approximately 8 days. Nothing makes her symptoms worse, nothing makes her symptoms better on exam. She does have some sore throat on exam. Strep negative CXR with evidence of RLL PNA Recommend abx for 5 days upon discharge Recommend nausea medications upon discharge Return precautions provided Dragpaul Disclaimer Dragon Disclaimer This electronic medical record was generated, in whole or in part, using a voice recognition dictation system. Departure Departure Impression: Primary Impression: Community acquired pneumonia Additional Impression: Nausea & vomiting Disposition: 01 HOME, SELF-CARE Condition: STABLE Referrals: NO PCP (PCP) Patient Instructions: Nausea and Vomiting, [id number], Pneumonia, Adult, [id number] Additional Instructions: Recommend follow up with PCP 3 - 5 days Return to the ER with worsening symptoms, intractable pain, fever, altered mental status Tylenol/Motrin as needed for pain Take antibiotics as directed Zofran as needed for nausea Scripts Azithromycin (AZITHROMYCIN TABLET) 500 Mg Tablet 1 TAB PO DAILY for 5 Days, #5 TAB 0 Refills Prov: FAROOQ WRAY MD 09/11/19 Ondansetron Hcl (ZOFRAN) 4 Mg Tablet 1 TAB PO PRN Q6-8HRS for nausea, #12 TAB Prov: FAROOQ WRAY MD 09/11/19 Problem Qualifiers Primary Impression: Community acquired pneumonia Laterality: right Lung location: lower lobe of lung Qualified Codes: J18.9 - Pneumonia, unspecified organism Additional Impression: Nausea & vomiting Vomiting type: unspecified Vomiting Intractability: unspecified Qualified Codes: R11.2 - Nausea with vomiting, unspecified FAROOQ WRAY MD Sep 11, 2019 03:00
[2019-09-11] MEDS ORDERED: ONDA4TAB7 PO (03:16)
[2019-09-11] MEDS ORDERED: AZIT500T4 PO (03:16)
--- NOTE | 2019-09-11 03:24 | RAD ---
PA and lateral chest x-rays HISTORY: Cough. FINDINGS: Heart size normal. Mediastinal silhouette is normal. Left lung is clear. At the right lower lobe there is a 4 cm x 2 cm linear planar density. Bones are unremarkable. IMPRESSION: 4 x 2 cm linear planar density at the right lower lobe could represent atelectasis versus early lobar pneumonia. Follow-up x-rays is advised after treatment to document that this resolves. Electronically signed by: Gregory Villanueva MD (09/11/2019 3:21 AM) [facility]
== END 2019-09-11 03:20 | disposition home or self-care (01) ==
LOC: ER 02:29
DX: J18.9 Pneumonia, unspecified organism (principal); R42 Dizziness and giddiness; R11.2 Nausea with vomiting, unspecified; F12.90 Cannabis use, unspecified, uncomplicated
CPT/HCPCS: 71046; 87070; 87880; 99285

== ENCOUNTER 2020-12-13 15:26 | Emergency (ER) | payer OTHER ==
[~2020-12-13] VITALS: Ht 152.4 cm; Wt 86.0 kg
[~2020-12-13 15:26] MED LIST changes: +AZIT500T4 PO; +ONDA4TAB7 PO
[2020-12-13 15:47] VITALS: BP 130/71
--- NOTE | 2020-12-13 16:34 | RAD ---
Exam: Right ankle 3 views. Right tibia and fibula 2 views INDICATION: Fall, ankle pain TECHNIQUE: Frontal, lateral and oblique views of the right ankle. Frontal and lateral views of the ri ght tibia and fibula Comparisons: None FINDINGS: Ankle: Bone mineralization is normal. No acute or healed fractures. Soft tissues are unremarkable. Joint [place] are well-maintained. Tib-fib: Bone mineralization is normal. No acute or healed fractures. Soft tissues are unremarkable. Joint [place] are well-maintained. IMPRESSION: No acute osseous abnormality. Electronically signed by: Yanira Arce MD (12/13/2020 4:32 PM) [facility]
--- NOTE | 2020-12-13 16:39 | ED.ADGEN ---
Past Medical History Past Medical History: No Pertinent History Past Surgical History: No Surgical History Smoking Status: Never Smoker Alcohol Use: None Drug Use: Marijuana General Adult EDM: Chief Complaint: ANKLE PROBLEM HPI: HPI: Patient is a 25 year old female coming in for right ankle pain. Patient states a couple of days ago she fell down the steps and inverted her ankle. Is able to ambulate with pain. Patient states she has fractured both of her ankles twice in the past and was concerned about fractures. Denies any other injuries or complaints. Otherwise been well. Does not take any blood thinners. Review of Systems: Review of Systems: All other systems within normal limits except for as noted in the HPI Allergies: Allergies: Allergies Coded Allergies Type Severity Reaction Last Updated Verified No Known Drug Allergies 02/22/14 No Physical Exam: PE: Constitutional: Well developed, well nourished, no acute distress, non-toxic appearance. [] HENT: Normocephalic, atraumatic, bilateral external ears normal, nose normal. [] Eyes: PERRLA, conjunctiva normal, no discharge. [] Neck: No rigidity, supple, no stridor. [] Cardiovascular: Regular rate and rhythm, brisk cap refill [] Lungs & Thorax: Non labored symmetric respirations, no tachypnea or respiratory distress [] Abdomen: Soft, nondistended. Skin: Warm, dry, no erythema, no rash. [] Back: Unremarkable Extremities: No deformities, range of motion grossly intact, no lower extremity edema [] right lower extremity exam: Tenderness over mid fibula and lateral malleolus, no tenderness over medial malleolus, pain not producible squeeze test, no tenderness over heel or fifth metatarsal Neurologic: Alert and oriented X 3, no focal deficits noted. [] Psychologic: Affect normal, judgement normal, mood normal. [] Current Patient Data: Vital Signs: Vital Signs Date Time Temp Pulse Resp B/P (MAP) Pulse Ox O2 Delivery O2 Flow Rate FiO2 12/13/20 15:47 98.7 68 18 130/71 (90) 99 Room Air 98.7 EKG: EKG: [] Heart Score: C/O Chest Pain: No Risk Factors: Risk Factors: DM, Current or recent (<one month) smoker, HTN, HLP, family history of CAD, obesity. Risk Scores: Score 0 - 3: 2.5% MACE over next 6 weeks - Discharge Home Score 4 - 6: 20.3% MACE over next 6 weeks - Admit for Clinical Observation Score 7 - 10: 72.7% MACE over next 6 weeks - Early Invasive Strategies Radiology/Procedures: Radiology/Procedures: Exam: Right ankle 3 views. Right tibia and fibula 2 views INDICATION: Fall, ankle pain TECHNIQUE: Frontal, lateral and oblique views of the right ankle. Frontal and lateral views of the right tibia and fibula Comparisons: None FINDINGS: Ankle: Bone mineralization is normal. No acute or healed fractures. Soft tissues are unremarkable. Joint spaces are well-maintained. Tib-fib: Bone mineralization is normal. No acute or healed fractures. Soft tissues are unremarkable. Joint spaces are well-maintained. IMPRESSION: No acute osseous abnormality. [] Course & Med Decision Making: Course & Med Decision Making Pertinent Labs and Imaging studies reviewed. (See chart for details) [] Dragon Disclaimer: Dragon Disclaimer: This electronic medical record was generated, in whole or in part, using a voice recognition dictation system. Departure Departure Impression: Primary Impression: Right ankle sprain Disposition: 01 DC HOME SELF CARE/HOMELESS Condition: STABLE Referrals: NO PCP (PCP) Patient Instructions: RICE - Routine Care for Injuries Additional Instructions: May take Tylenol or ibuprofen as needed for pain, try to rest right leg as much as possible and elevate when able. May use ice and Albino wrap as well to help alleviate pain. JEANIE NORRIS MD Dec 13, 2020 16:39
== END 2020-12-13 16:50 | disposition home or self-care (01) ==
LOC: ER 15:26
DX: S93.491A Sprain of other ligament of right ankle, initial encounter (principal); F12.90 Cannabis use, unspecified, uncomplicated; W10.8XXA Fall (on) (from) other stairs and steps, initial encounter; Y93.89 Activity, other specified; Y92.89 Other specified places as the place of occurrence of the external cause; Y99.8 Other external cause status
CPT/HCPCS: 73590; 73610; 99284

== ENCOUNTER 2021-04-16 14:11 | Emergency (ER) | payer OTHER | END 2021-04-16 17:58 | disposition left against medical advice (07) | LOC: ER 14:11 | DX: R10.9 Unspecified abdominal pain (principal); Z53.21 Procedure and treatment not carried out due to patient leaving prior to being seen by health care provider ==